=== PATIENT | female | born 1965 | race Caucasian/White ===

== ENCOUNTER 2023-10-19 07:02 | Day surgery (SDC) | payer OTHER ==
[~2023-10-19] VITALS: Ht 157.5 cm; Wt 57.2 kg
[2023-10-19] MEDS ORDERED: SIMETHICONE 40 MG/0.6 ML ML ONE (08:09)
[2023-10-19] MEDS ORDERED: MIDAZOLAM HCL 5 MG/5 ML VIAL ONE (08:10)
[2023-10-19] MEDS ORDERED: MEPERIDINE 100 MG INJ. 100 MG/ML VIAL ONE (08:10)
[2023-10-19 12:17] VITALS: TEMP 97.8; O2SAT 99
[2023-10-19 13:54] VITALS: BP_SYST 108; PULSE 60; RESP 24
== END 2023-10-19 11:00 | disposition home or self-care (01) ==
LOC: SDS 07:02 → SMU 07:02 → SDS 11:00
PROVIDERS: ATTEND Internal Medicine
DX: Z12.11 Encounter for screening for malignant neoplasm of colon (principal); K64.8 Other hemorrhoids; Z79.899 Other long term (current) drug therapy
CPT/HCPCS: 45378; 99152; 99153; G0378; J2250; J2175